=== PATIENT | male | born 1960 | race Caucasian/White ===

== ENCOUNTER → 2024-06-27 06:19 | Day surgery (SDC) | payer BC, SELFPAY | LOC: GI 06:19 | PROVIDERS: ATTENDING PHYSICIAN Internal Medicine Gastroenterology | DX: Z12.11 Encounter for screening for malignant neoplasm of colon (principal); K64.8 Other hemorrhoids; K57.30 Diverticulosis of large intestine without perforation or abscess without bleeding; K63.5 Polyp of colon; D12.4 Benign neoplasm of descending colon | CPT/HCPCS: 45380; 88305 ==

== ENCOUNTER 2024-10-27 12:54 | Emergency (ER) | payer BC, SELFPAY ==
[2024-10-27 12:57] VITALS: BP 167/100
[2024-10-27 13:18] LABS: % Basophils 1.3 % (0-2); % Eosinophils 5.5 % (0-6); % Immature Granulocytes 0.3 % (0-0.5); % Lymphocytes 36.9 % (20.5-51.1); Absolute Basophils 0.1 10^3/uL (0-0.2); Absolute Eosinophils 0.4 10^3/uL (0-0.7); Absolute Lymphocytes 2.4 10^3/uL (1.2-3.4); Absolute Monocytes 0.6 10^3/uL (0.1-0.6); Hematocrit 44.7 % (39.0-52.0); Hemoglobin 14.5 g/dL (13.0-18.0); Mean Corp Hgb Conc. 32.4 g/dL (33.0-37.0); Mean Corpuscular Hgb 27.5 pg (27.0-31.0); Mean Corpuscular Volume 84.8 fL (80.0-94.0); Mean Platelet Volume 9.5 fL (7.4-10.4); Nucleated Red Blood Cells % 0 % (-); Platelet Count 228 10^3/uL (130-400); Red Blood Cell Count 5.27 10^6/uL (4.70-6.10); Red Cell Dist. Width 14.6 % (11.5-14.5); White Blood Cell Count 6.4 10^3/uL (4.8-10.8)
--- NOTE | 2024-10-27 13:19 | ED.GENMED ---
History of Present Illness
General
Chief Complaint: Rectal Bleeding
Time Seen by Provider: 10/27/24 13:10
History of Present Illness
History of Present Illness:
Patient is a 64-year-old male with history of prior polyps presenting to the emergency department with rectal bleeding. Patient states for the past week he has had daily bowel movements with maroon blood mixed with the stool. He states that has
happened to him before. He last had a colonoscopy done in June that he had 2 polyps removed. He also had this occur 5 years ago. He does state that usually when he has the polyps he only has intermittent bleeding and has never bled for 1
whole week. He denies any NSAID. He does take omeprazole for reflux. He also notes he is having some mild lower abdominal pain. No history of hemorrhoids. He went to his primary care doctor today who told him to come to the emergency department
for further evaluation. He is not on any blood thinners. No diarrhea. No recent travel or antibiotics.
Past History
Past History
ED Past Medical History: None
ED Past Surgical History: Orthopedic
Social History
Tobacco: Former smoker (quit 20 yrs ago)
Alcohol: Occasional
Personal:
Living: with family
Family History
Family History: Unable to obtain
Phy Exam
Physical Exam
Physical Exam:
GENERAL: in no acute distress
HEENT: normocephalic, extraocular movements intact, moist oral mucosa
NECK: normal inspection
RESPIRATORY: no respiratory distress, clear to auscultation bilaterally
CARDIOVASCULAR: regular rate and rhythm
ABDOMEN/: soft, non-distended, bilateral lower quadrant tenderness to palpation, no rebound or guarding
Rectal exam. Chaperoned by tech, Hemoccult positive stool, stool was not grossly bloody
EXTREMITIES: non-tender, no edema/swelling
NEUROLOGIC: awake and alert, moves all extremities
SKIN: warm
Course
Orders/Labs/Results
Orders:
Orders
10/27/24 13:04
Type+Screen Urgent
Complete Blood Count/With Diff Urgent
Comprehensive Metabolic Panel Urgent
PTT Urgent
Prothrombin Time Urgent
10/27/24 13:18
CT Abd/pelvis W Iv Cont Urgent
Comment:
Reason For Exam: rectal bleeding, abdominal pain
10/27/24 13:28
ABO2 Urgent
BBK Wristband Number:
Associate notified that ABO2 has been ordered: [id number]
Date: 10/27/24
Time: 13:18
Unit Controller ID: [id number]
Abnormal Lab Results
10/27/24
13:04
MCHC 32.4 L g/dL
(33.0-37.0)
RDW 14.6 H %
(11.5-14.5)
Monocytes % 10.0 H %
(1.7-9.3)
10/27/24 13:04
10/27/24 13:04
Vital Signs
Initial and Last Documented VS:
Initial Vital Signs
Temp Pulse Resp BP Pulse Ox
97.9 F 74 16 167/100 99
10/27/24 12:57 10/27/24 12:57 10/27/24 12:57 10/27/24 12:57 10/27/24 12:57
Last Documented Vital Signs
Temp Pulse Resp BP Pulse Ox
97.9 F 74 16 167/100 99
10/27/24 12:57 10/27/24 12:57 10/27/24 12:57 10/27/24 12:57 10/27/24 12:57
MDM/Problems Addressed
Differential Diagnosis Includes:
Patient is a 64-year-old man presenting to the emergency department with rectal bleeding and mild abdominal pain. Vitals unremarkable on exam does show stool that is Hemoccult positive. Differential is broad but most likely lower GI bleed
secondary to polyps versus diverticular bleed. History and exam not consistent with mesenteric ischemia or ischemic colitis or rapid upper GI bleed. Will obtain blood work and CT scan. Patient will need follow-up with GI. NOBLADS score is 1
for abdominal tenderness.
*Critical Care Note
Total Time (30-74mins, 75-104mins- exclusive of procedures): Not Applicable
Update Note
Update Note:
Work is reassuring. CT scan with no acute abnormality. Message sent to GI front facer to reschedule his appointment. Patient educated on strict return precautions. Will discharge at this time
ED Attending Note
-
Portions of this chart may have been created with voice recognition software.� Occasional wrong word or��sound alike� substitutions may have occurred due to the inherent limitations of voice recognition software.
Discharge Plan
Departure
Patient Disposition: Home (Routine Discharge)
Date of Disposition: 10/27/24
Time of Disposition: 15:06
Patient with high blood pressure during this ER visit?: Yes
Discharge Problem:
GI bleeding
Instructions: Gastrointestinal Bleeding (DC)
Prescriptions:
No Action
tamsulosin 0.4 MG capsule
0.4 mg PO DAILY Qty: 10 0RF
albuterol sulfate 1 PUFF HFA aerosol inhaler
2 puff inhalation R Q4HPRN PRN (Reason: cough, wheezing) Qty: 1 0RF
Referrals:
Kannan Sales MD [Family Provider] -
Irma Rosenberg MD [Active] -
Activity Restrictions/Additional Instructions:
You were seen in the Emergency Department today for GI bleeding. While you were here we performed blood work, which was reassuring. If you do not hear from your GI team please give them a call to schedule an appointment.
We would like for you to follow up with your primary care physician for further evaluation. If you experience fever, worsening of your symptoms, or develop any other new or concerning symptoms, please return to the Emergency Department immediately.
Please see the attached sheet for additional information.
Interventions
Interventions:
*Risk Screen - Suicide Last Done: 10/27/24 12:57
*General Assessment Last Done: 10/27/24 12:57
*Neglect/Abuse Screening Last Done: 10/27/24 12:57
*ED COVID-19 Vaccine History Last Done: 10/27/24 12:57
OH-Lkeefc-Ruqiuhdahd Assessment Last Done: 10/27/24 13:30
ED- Cardiac Assessment Last Done: 10/27/24 13:30
ED- Pulmonary Assessment Last Done: 10/27/24 13:30
Discharge Date and Time
Print Language: LITHUANIAN
[2024-10-27 13:28] LABS: INR 1.01; PT 13.6 Sec (11.4-14.6)
[2024-10-27 13:29] LABS: APTT 31.5 Sec (23.4-35.0)
[2024-10-27 13:37] LABS: ALT (SGPT) 29 U/L (0-50); AST (SGOT) 23 U/L (17-59); Albumin 4.7 g/dl (3.5-5.0); Alkaline Phosphatase 76 U/L (38-126); Blood Urea Nitrogen 15 mg/dl (9-20); Calcium 9.2 mg/dl (8.4-10.2); Carbon Dioxide 27 mmol/L (22-30); Chloride 101 mmol/L (98-107); Glucose 97 mg/dl (70-99); Potassium 4.2 mmol/L (3.5-5.1); Sodium 139 mmol/L (135-145); Total Bilirubin 0.8 mg/dl (0.2-1.3); Total Protein 7.5 g/dl (6.3-8.2); eGFR > 60.00
[2024-10-27 15:08] VITALS: BP 145/104
== END 2024-10-27 15:14 | disposition home or self-care (01) ==
LOC: EMR 12:54
PROVIDERS: Student in an Organized Health Care Education/Training Program; EMERGENCY PHYSICIAN Student in an Organized Health Care Education/Training Program; FAMILY PHYSICIAN Family Medicine
DX: K92.2 Gastrointestinal hemorrhage, unspecified (principal); K21.9 Gastro-esophageal reflux disease without esophagitis; Z87.891 Personal history of nicotine dependence; Z79.899 Other long term (current) drug therapy
CPT/HCPCS: 99284; 74177; 80053; 85025; 85610; 85730; 86850; 86900; 86901; Q9967

== ENCOUNTER 2024-12-14 06:19 | Day surgery (SDC) | payer BC, SELFPAY | END 2024-12-14 14:01 | disposition home or self-care (01) | LOC: GI 06:19 | PROVIDERS: ATTENDING PHYSICIAN Internal Medicine Gastroenterology; FAMILY PHYSICIAN Family Medicine | DX: K92.1 Melena (principal); K64.8 Other hemorrhoids; K64.4 Residual hemorrhoidal skin tags; D50.9 Iron deficiency anemia, unspecified; R12 Heartburn; K44.9 Diaphragmatic hernia without obstruction or gangrene; K31.7 Polyp of stomach and duodenum; K31.89 Other diseases of stomach and duodenum; K62.9 Disease of anus and rectum, unspecified; K26.9 Duodenal ulcer, unspecified as acute or chronic, without hemorrhage or perforation | CPT/HCPCS: 43239; 45330; 46221; 88305; 88342 ==